=== PATIENT | female | born 1985 | race Caucasian/White ===

== ENCOUNTER 2016-10-18 16:18 | Observation (INO) | payer BC ==
[~2016-10-18] VITALS: Ht 162.6 cm; Wt 81.3 kg
[~2016-10-18 16:18] MED LIST: DOCU-30 PO; FERR325T23 PO; IBUP-1 PO; ONDA4TAB7 PO; OXYC-302 PO
[2016-10-18 16:31] VITALS: BP 132/74
[2016-10-18 22:42] VITALS: BP 128/66
[2016-10-19 08:00] VITALS: BP 136/67
== END 2016-10-19 13:25 | disposition home or self-care (01) ==
LOC: LDOP 16:18 → LDIP 17:25
PROVIDERS: ADMIT Student in an Organized Health Care Education/Training Program; ATTEND Student in an Organized Health Care Education/Training Program
DX: O26.893 Other specified pregnancy related conditions, third trimester (principal); Q62.0 Congenital hydronephrosis; Z3A.30 30 weeks gestation of pregnancy
CPT/HCPCS: 36415; 59025; 76815; 76819; 85025; 86850; 86870; 86900; 86922; G0378; 86923

== ENCOUNTER 2016-12-25 12:56 | Inpatient (IN) | payer BC ==
[~2016-12-25] VITALS: Ht 162.6 cm; Wt 84.0 kg
[~2016-12-25 12:56] MED LIST changes: +DOCU-131 PO; -DOCU-30 PO; -IBUP-1 PO; +IBUP-11 PO
[2016-12-25] MEDS ORDERED: LIDOCAINE 1%, 20ML ONE (14:11)
[2016-12-25] MEDS ORDERED: NEWBORN KIT ONE (14:11)
[2016-12-25] MEDS ORDERED: OXYTOCIN 30U/ 0.9% NaCL 500ML 500 ML ONE ×2 (14:12→16:57)
[2016-12-25] MEDS ORDERED: MISOPROSTOL 200 MCG TABLET ONE (14:12)
[2016-12-25] MEDS ORDERED: OXYTOCIN 30U/ 0.9% NaCL 500ML 500 ML IV ONE (14:14)
[2016-12-25] MEDS: D5%-LACTATED RINGERS 1,000 ML IV SCH ×2 (14:14→22:14)
[2016-12-25] MEDS ORDERED: FENTANYL PF 100 MCG/2ML IVPush PRN (14:30)
[2016-12-25] MEDS ORDERED: FENTANYL PF 100 MCG/2ML IV PRN (14:30)
[2016-12-25] MEDS ORDERED: SODIUM CITRATE/CITRIC ACID 30 ML UDC PO PRN (14:30)
[2016-12-25] MEDS ORDERED: METOCLOPRAMIDE 5 MG/ML, 2ML IVPush PRN (14:30)
[2016-12-25] MEDS ORDERED: PLEASE ENTER HEIGHT AND WEIGHT MC SCH (14:30)
[2016-12-25] MEDS ORDERED: ONDANSETRON 2MG/ML, 2ML IVPush PRN (14:30)
[2016-12-25 14:37] LABS: HEMATOCRIT 41.7 % (34.6-47.8); HEMOGLOBIN 14.1 g/dL (11.7-16.4); WHITE BLOOD COUNT 15.6 x10^3/uL (3.4-10)
[2016-12-25] MEDS: LACTATED RINGERS 1,000 ML IV SCH ×2 (14:45→22:14)
[2016-12-25] MEDS ORDERED: FENTANYL PF 100 MCG/2ML ONE (14:54)
[2016-12-25] MEDS ORDERED: IBUPROFEN 600 MG TABLET ONE (16:28)
[2016-12-25] MEDS ORDERED: MISOPROSTOL 200 MCG TABLET PR PRN (16:30)
[2016-12-25] MEDS ORDERED: CALCIUM CARBONATE 500 MG TAB.CHEW PO PRN (16:30)
[2016-12-25] MEDS ORDERED: ONDANSETRON 2MG/ML, 2ML IV PRN (16:30)
[2016-12-25] MEDS ORDERED: DOCUSATE 100 MG CAPSULE PO PRN (16:30)
[2016-12-25] MEDS ORDERED: CARBOPROST TROMETHAMINE 250 MCG/ML, 1ML IM PRN (16:30)
[2016-12-25] MEDS ORDERED: METHYLERGONOVINE 0.2 MG/ML IM PRN (16:30)
[2016-12-25] MEDS: IBUPROFEN 600 MG TABLET PO PRN (16:30)
[2016-12-25] MEDS ORDERED: HYDROcodone/APAP 5/325 TABLET PO PRN (16:30)
[2016-12-25] MEDS: OXYTOCIN 30U/ 0.9% NaCL 500ML 500 ML IV SCH (16:59)
[2016-12-25 17:31] LABS: ASPARTATE AMINO TRANSFERASE 10 U/L (15-37); BLOOD UREA NITROGEN 10 mg/dL (7-18)
[2016-12-25 17:38] LABS: HEMATOCRIT 39.5 % (34.6-47.8); HEMOGLOBIN 13.5 g/dL (11.7-16.4); WHITE BLOOD COUNT 23.2 x10^3/uL (3.4-10)
[2016-12-25 18:15] LABS: DIFF TOTAL CELLS COUNTED 100 CELL DIFF
[2016-12-25 18:16] LABS: VERIFY COUNTS? YES
[2016-12-25 19:15] VITALS: BP 136/89
[2016-12-26 00:35] VITALS: BP 136/96
[2016-12-26] MEDS: HYDROcodone/APAP 5/325 TABLET PO PRN ×4 (00:47→15:30)
[2016-12-26] MEDS: IBUPROFEN 600 MG TABLET PO PRN ×3 (00:47→13:47)
[2016-12-26] MEDS: OXYTOCIN 30U/ 0.9% NaCL 500ML 500 ML IV SCH ×2 (02:10→12:10)
[2016-12-26] MEDS ORDERED: IBUP-1222 PO (04:39)
[2016-12-26 04:40] VITALS: BP 138/95
[2016-12-26] MEDS ORDERED: HYDR-3240 PO (04:40)
[2016-12-26] MEDS ORDERED: DOCU-131 PO (04:40)
[2016-12-26 06:04] LABS: HEMATOCRIT 35.5 % (34.6-47.8); WHITE BLOOD COUNT 16.2 x10^3/uL (3.4-10)
[2016-12-26] MEDS ORDERED: PRENATAL VIT/IRON/FA 1 EACH TABLET ONE (07:33)
[2016-12-26 07:43] VITALS: BP 143/98
[2016-12-26] MEDS ORDERED: PRENATAL VIT/IRON/FA 1 EACH TABLET PO SCH (09:00)
[2016-12-26 12:15] VITALS: BP 131/87
== END 2016-12-26 15:55 | disposition home or self-care (01) | DRG 775 ==
LOC: LDOP 12:56 → LDIP 14:14 → 2NW 19:20
PROVIDERS: ADMIT Student in an Organized Health Care Education/Training Program; ATTEND Student in an Organized Health Care Education/Training Program
PROC: 10E0XZZ Delivery of Products of Conception, External Approach (ICD-10-PCS; principal; 2016-12-25)
PROC: 0KQM0ZZ Repair Perineum Muscle, Open Approach (ICD-10-PCS; 2016-12-25)
DX: O35.8XX0 Maternal care for other (suspected) fetal abnormality and damage, not applicable or unspecified (principal); O70.1 Second degree perineal laceration during delivery; Z37.0 Single live birth; Z3A.40 40 weeks gestation of pregnancy
CPT/HCPCS: 36415; 80053; 82248; 82570; 84156; 84550; 85025; 86850; 86900; J3010; J2590; J7120